=== PATIENT | female | born 1950 | race Two or more races ===

== ENCOUNTER 2020-09-26 21:50 | Emergency (ER) | payer OTHER ==
[~2020-09-26] VITALS: Ht 170.2 cm; Wt 72.6 kg
[2020-09-26] MEDS ORDERED: VALSARTAN80 MG (22:00)
[2020-09-26] MEDS ORDERED: FORTAMET500 MG (22:01)
[2020-09-27] MEDS ORDERED: ZOFRAN8 MG PO (02:38)
[2020-09-27] MEDS ORDERED: MECLIZINE HCL25 MG PO (02:38)
== END 2020-09-27 02:51 | disposition home or self-care (01) ==
LOC: ER 21:50
DX: R11.2 Nausea with vomiting, unspecified (principal); R30.0 Dysuria; R42 Dizziness and giddiness

== ENCOUNTER 2021-08-15 08:46 | Outpatient (CLI) | payer OTHER ==
[~2021-08-15 08:46] MED LIST: FORTAMET500 MG; MECLIZINE HCL25 MG PO; VALSARTAN80 MG; ZOFRAN8 MG PO
== END 2021-08-15 08:47 | disposition home or self-care (01) ==
LOC: NUCLEAR 08:46
PROVIDERS: ATTEND Chiropractor
DX: I65.22 Occlusion and stenosis of left carotid artery (principal)

== ENCOUNTER 2022-09-02 10:30 | Outpatient (CLI) | payer OTHER | END 2022-09-02 10:34 | disposition home or self-care (01) | LOC: RAD 10:30 | PROVIDERS: ATTEND Physical Medicine & Rehabilitation Hospice and Palliative Medicine | DX: M25.512 Pain in left shoulder (principal); M75.42 Impingement syndrome of left shoulder; M75.102 Unspecified rotator cuff tear or rupture of left shoulder, not specified as traumatic ==

== ENCOUNTER 2023-03-19 14:36 | Emergency (ER) | payer OTHER ==
[~2023-03-19] VITALS: Ht 162.6 cm; Wt 63.5 kg
[2023-03-19 17:22] LABS: URINE APPEARANCE Clear; URINE BACTERIA 6.2 uL (0.0-1933); URINE BILIRRUBIN Negative (NEGATIVE); URINE BLOOD Negative; URINE COLOR Yellow; URINE EPITHELIAL CELLS 1.6 uL (0.0-38.8); URINE GLUCOSE Negative (NEGATIVE); URINE LEUKOCYTE Negative; URINE NITRATE Negative; URINE PROTEIN Negative (NEGATIVE); URINE UROBILINOGEN 0.2 E.U./dl
[2023-03-19 17:24] LABS: HEMATOCRIT 39.8 % (36.0-45.00); HEMOGLOBIN 13.4 g/dL (12.0-15.00); MEAN CELL VOLUME 87.8 fL (80.00-100.00); MEAN CORPUSCULAR HEMOGLOBIN 29.6 pg (27.00-32.0); MEAN CORPUSCULAR HGB CONC 33.7 g/dl (32.0-36.0); PLATELET COUNT 290 K/uL (150-450); RED BLOOD COUNT 4.53 M/uL (4.00-6.00); RED CELL DISTRIBUTION WIDTH 12.9 % (11.5-14.5)
[2023-03-19 17:25] LABS: URINE RBC 0.7 uL (0.0-20.8)
== END 2023-03-19 18:24 | disposition home or self-care (01) ==
LOC: ER 14:37
PROVIDERS: Emergency Medicine
DX: R10.2 Pelvic and perineal pain (principal)